=== PATIENT | male | born 1965 | race Caucasian/White ===

== ENCOUNTER → 2020-08-20 | Outpatient (CLI) | payer OTHER ==
[2020-08-20 18:10] LABS: Basophils # (A) 0.06 X 10*3/uL (0.00-0.10); Basophils % (A) 0.7 %; Eosinophils # (A) 0.17 X 10*3/uL (0.04-0.35); HCT 44.7 % (39.6-50.0); Lymphocytes # (A) 2.56 X 10*3/uL (0.90-5.00); Lymphocytes % (A) 30.6 %; MCH 31.5 pg (27.0-32.0); MCHC 33.6 g/dL (32.0-37.0); MCV 93.9 fL (80.0-97.0); Mean Platelet Volume 11.8 fL (9.5-12.2); Monocytes # (A) 0.59 X 10*3/uL (0.20-1.00); Neutrophils # (A) 4.97 X 10*3/uL (1.80-7.70); Neutrophils % (A) 59.5 %; Platelet Count 243 X 10*3/uL (140-440); RBC 4.76 X 10*6/uL (4.40-5.60); RDW 13.4 % (11.5-14.5); WBC 8.37 X 10*3/uL (4.50-10.00)
[2020-08-21 02:23] LABS: African American GFR (CKD) 99.1 (60.0-200.0); Albumin 4.8 g/dL (3.80-4.90); Albumin/Globulin Ratio 2.29 (1.60-3.17); Anion Gap 9.7 mmol/L (4.00-12.00); Calcium 10.3 mg/dL (8.7-10.3); Carbon Dioxide 26.3 mmol/L (21.6-31.8); Chol/HDL Ratio 3.37; Globulin 2.1 g/dL (1.6-3.3); Non-African American GFR(CKD) 85.5 (60.0-200.0); Potassium 4.9 mmol/L (3.5-5.5); Prostate Specific Antigen 1.3 ng/mL (0.0-3.5); Total Bilirubin 0.5 mg/dL (0.3-1.2); Total Protein 6.9 g/dL (6.2-8.2)
== END | disposition home or self-care (01) ==
LOC: LABWHC1 08:33
PROVIDERS: ATTEND Family Medicine
DX: Z12.5 Encounter for screening for malignant neoplasm of prostate (principal); R07.9 Chest pain, unspecified
CPT/HCPCS: 36415; 80053; 80061; 84153; 84443; 85025